=== PATIENT | male | born 1995 | race Caucasian/White ===

== ENCOUNTER 2018-01-25 04:57 | Emergency (ER) | payer MEDICAID ==
--- NOTE | 2018-01-25 05:03 | EDPHY ---
H & P Source: Patient, EMS Time Seen by Provider: 01/25/18 05:03 HPI/ROS: HPI CHIEF COMPLAINT: Intoxication, head laceration HISTORY OF PRESENT ILLNESS: This patient 22-year-old male who presents emergency room by EMS around 5 o'clock in the morning for intoxication. Patient admits to large amount of alcohol this evening, additionally smoked marijuana and most likely did acid. Patient presents somewhat agitated tachycardic. Additionally he has a laceration over the nasal bridge that is 4 cm in length. He is unsure how he got this. Denies any other areas of injury. Past Medical History: Denies significant medical history Past Surgical History: Benign brain tumor removal, shunt Social History: Admits to large amount of alcohol this evening, marijuana, acid Family History: Noncontributory ROS REVIEW OF SYSTEMS: A comprehensive 10 point review of systems is otherwise negative aside from elements mentioned in the history of present illness. Exam Constitutional intoxicated triage nursing summary reviewed, vital signs reviewed , awake/alert. Eyes normal conjunctivae and sclera, EOMI, pupils are 8 mm equal minimally reactive to light HENT head/neck atraumatic except for the 4 cm laceration noted over the nasal bridge, normal inspection, atraumatic, moist mucus membranes, no epistaxis, neck supple/ no meningismus, no raccoon eyes. Respiratory clear to auscultation bilaterally, normal breath sounds, no respiratory distress, no wheezing. Cardiovascular rate normal, regular rhythm, no murmur, no edema, distal pulses normal. Gastrointestinal soft, non-tender, no rebound, no guarding, normal bowel sounds, no distension, no pulsatile mass. Genitourinary no CVA tenderness. Musculoskeletal no midline vertebral tenderness, full range of motion, no calf swelling, no tenderness of extremities, no meningismus, good pulses, neurovascularly intact. Skin pink, warm, & dry, no rash, skin atraumatic. Neurologic awake, alert and oriented x 3, AAOx3, moves all 4 extremities equally, motor intact, sensory intact, CN II-XII intact, normal cerebellar, normal vision, normal speech. Psychiatric normal mood/affect. Heme/Lymph/Immune no lymphadenopathy. Differential Diagnosis: Includes but is not limited to in a particular order acute intoxication alcohol intoxication, drug intoxication, closed head injury, intracranial bleed, laceration Medical Decision Making: Plan for this patient CT head without contrast for trauma, will clean his wounds up in repair his facial laceration, check basic blood work, drug screen, cardiac surgeon Re-evaluation: Laceration Repair Procedure: Verbal Consent was obtained, Under sterile conditions, The patient had lidocaine with epinephrine used approximately 4ccs to local anesthetize the 3CM Forehead Laceration. The wound was copiously irrigated with sterile fluid, the wound was explored for foreign bodies there were none visualized, the wound was explored with a sterile glove to the base. There are no deep structures involved, including no arterial injury. TWO 6.O PROLENE interrupted Sutures were placed in this patient's laceration. He had good close approximation of the wound edges. He Tolerated this well. Patient understands have sutures removed in 7 days. Keep his wound clean, dry and protected. CT scan head without contrast called to me by Dr. Rosas no intracranial bleed or skull fracture. Soft tissue scalp swelling noted. [employer] shunt appears to be in appropriate position. Ventricles are decompressed. Cerebellar tumor. Otherwise no acute bleed or fracture of the skull. 0700: Signed over to Dr. Watson, patient pending sobriety, once sober, can be discharged from the Er. (Nick Lees) Constitutional: Initial Vital Signs Temperature (C) 36.2 C 01/25/18 04:58 Heart Rate 89 01/25/18 04:58 Respiratory Rate 18 01/25/18 04:58 Blood Pressure 104/95 H 01/25/18 04:58 O2 Sat (%) 99 01/25/18 04:58 O2 Delivery Mode Room Air Allergies/Adverse Reactions: No Known Allergies Allergy (Unverified 01/25/18 04:59) Home Medications: Medication Instructions Recorded NK [No Known Home Meds] 01/25/18 Medical Decision Making Other Provider: I assumed care of this patient at 7:[address] Nick Lees. Patient continued to be observed in the emergency department. I examined him on multiple occasions. He is quite confused and having hallucinations. I reviewed his CT scan which demonstrates a very small, slit-like ventricles with the potential for being over shunted. Patient himself tells me that he did have an issue with his shunt in the remote past but at that time he was confused and had vomiting and was sleepy. Patient does not feel that there is an issue with his shunt. He is followed at [facility]. With contacted [facility] on asked for the most recent CT scan to be provided to her Hospital. This was pushed through the PACS system and in comparison to the prior CT scans ventricle size appear similar. Patient was seen by the neurosurgical service with respect to the question of patient's continued altered mentation. Please see their note. Patient's friends were eventually contacted and reports that the patient did not use acid but did take multiple tablets of Benadryl. Patient's friends present to the emergency department. At this point the patient's mentation has continued to clear. He is oriented x3. He reports that he lives with his friends. They report that he is acting as his normal self. He no longer is having hallucinations. He was discharged from the emergency department with instructions to follow up with Neurosurgery. (Roseanne Watson) - Data Points Laboratory Results: Laboratory Results 01/25/18 05:15 01/25/18 05:15 01/25/18 01/25/18 01/25/18 06:30 05:15 05:15 WBC 7.88 10^3/uL 10^3/uL (3.80-9.50) RBC 6.29 10^6/uL 10^6/uL (4.40-6.38) Hgb 18.3 g/dL H g/dL (13.7-17.5) Hct 50.6 % % (40.0-51.0) MCV 80.4 fL L fL (81.5-99.8) MCH 29.1 pg pg (27.9-34.1) MCHC 36.2 g/dL g/dL (32.4-36.7) RDW 13.4 % % (11.5-15.2) Plt Count 310 10^3/uL 10^3/uL (150-400) MPV 9.9 fL fL (8.7-11.7) Neut % (Auto) 66.7 % % (39.3-74.2) Lymph % (Auto) 24.0 % % (15.0-45.0) Winn % (Auto) 7.4 % % (4.5-13.0) Eos % (Auto) 0.5 % L % (0.6-7.6) Baso % (Auto) 0.9 % % (0.3-1.7) Nucleat RBC Rel Count 0.0 % % (0.0-0.2) Absolute Neuts (auto) 5.26 10^3/uL 10^3/uL (1.70-6.50) Absolute Lymphs (auto) 1.89 10^3/uL 10^3/uL (1.00-3.00) Absolute Monos (auto) 0.58 10^3/uL 10^3/uL (0.30-0.80) Absolute Eos (auto) 0.04 10^3/uL 10^3/uL (0.03-0.40) Absolute Basos (auto) 0.07 10^3/uL 10^3/uL (0.02-0.10) Absolute Nucleated RBC 0.00 10^3/uL 10^3/uL (0-0.01) Immature Gran % 0.5 % % (0.0-1.1) Immature Gran # 0.04 10^3/uL 10^3/uL (0.00-0.10) Sodium 146 mEq/L H mEq/L (135-145) Potassium 3.9 mEq/L mEq/L (3.5-5.2) Chloride 103 mEq/L mEq/L (97-110) Carbon Dioxide 26 mEq/l mEq/l (22-31) Anion Gap 17 mEq/L H mEq/L (8-16) BUN 9 mg/dL mg/dL (7-23) Creatinine 1.1 mg/dL mg/dL (0.7-1.3) Estimated GFR > 60 Glucose 88 mg/dL mg/dL (70-100) Calcium 10.3 mg/dL mg/dL (8.5-10.4) Urine Opiates Screen NEGATIVE (NEGATIVE) Urine Barbiturates NEGATIVE (NEGATIVE) Ur Phencyclidine Scrn NEGATIVE (NEGATIVE) Ur Amphetamine Screen NEGATIVE (NEGATIVE) U Benzodiazepines Scrn NEGATIVE (NEGATIVE) Urine Cocaine Screen NEGATIVE (NEGATIVE) U Marijuana (THC) Screen NON-NEGATIVE H (NEGATIVE) Ethyl Alcohol 60 mg/dL H mg/dL (0-10) Medications Given: Discontinued Medications Sodium Chloride (Ns) 1,000 mls @ 0 mls/hr IV EDNOW ONE; Wide Open PRN Reason: Protocol Stop: 01/25/18 05:08 Last Admin: 01/25/18 05:12 Dose: 1,000 mls Sodium Chloride (Ns) 1,000 mls @ 0 mls/hr IV ONCE ONE PRN Reason: Wide Open Stop: 01/25/18 06:01 Last Admin: 01/25/18 06:03 Dose: Not Given Departure - Departure Disposition: Home, Routine, Self-Care Clinical Impression: Polysubstance abuse Alcoholic intoxication Qualifiers: Complication of substance-induced condition: uncomplicated Qualified Code(s): F10.920 - Alcohol use, unspecified with intoxication, uncomplicated Laceration of head Qualifiers: Encounter type: initial encounter Location of open wound of head: unspecified part of head Foreign body presence: without foreign body Qualified Code(s): S01.91XA - Laceration without foreign body of unspecified part of head, initial encounter Condition: Good Instructions: Care For Your Stitches (ED), Laceration (ED), Alcohol Intoxication (ED), Abuse of Alcohol (ED) Additional Instructions: 1. Your sutures need to be removed in 7 days. 2. Keep her wound clean, dry and intact and protected. Watch for signs of infection. Referrals: Patient,NotPresent [Unknown] - As per Instructions José Hopson MD [Medical Doctor] - As per Instructions
[2018-01-25] MEDS ORDERED: NS 1,000 ML IV ONE ×2 (05:07→06:00)
[2018-01-25 05:34] LABS: PLATELET COUNT 310 10^3/uL (150-400)
--- NOTE | 2018-01-25 12:20 | GCON ---
[f rep st] CONSULTATION DATE OF CONSULTATION: 01/25/2018 TIME OF CONSULTATION: 10:20 in the emergency room. HOSPITAL COURSE/HISTORY/MAJOR MEDICAL FINDINGS: Scarlet Thomas is a 22-year-old gentleman who wa s brought into the emergency room via EMS around 5 o'clock in the morning for intoxication. The ricardo ent at that time stated that he was drinking large amounts of alcohol earlier that evening and was sm oking some marijuana, and possibly had some acid as well. When he came in, he was somewhat agitated and was tachycardic. He was not recalling any of the events. Given his confusion and history of a V P shunt, Neurosurgery was consulted. The patient at time of consultation states that he had the SYSTEMS DEVELOPMENT CONSULTANT s aceves placed when he was 8 years old after he had undergone a brain tumor resection. That shunt and d id have some issues when he was 20 years old. At that time, the shunt was malfunctioning, he was vom iting, he was severely confused and combative. He has not had any problems with the shunt since he w as 20. He is currently off all medications and does not take any [id number] medications. He c urrently lives with his sister in [place]. He denies any weakness, any numbness, tingling, pain. H e denies any headaches, any nausea. PAST MEDICAL HISTORY: Significant for history of a brain tumor status post shunting. Denies other [facility] medical history. PAST SURGICAL HISTORY: Removal of brain mass with SYSTEMS DEVELOPMENT CONSULTANT shunting. He also had this revised when he was 20 per the patient. SOCIAL HISTORY: He does drink alcohol very frequently, he uses marijuana daily and smokes about 5 ci garettes per day. He lives with his sister locally in [place]. FAMILY HISTORY: Denies any significant past family history. ALLERGIES: No known drug allergies. MEDICATIONS: Denies any medication use. PHYSICAL EXAMINATION: VITAL SIGNS: His BP is 110/84, his heart rate is 65, respiratory rate is 16. He is 96% on room air. Temperature is 36.5. GENERAL: Patient is in no acute distress. He is alert and oriented x4. He answers all questions appropriately and his affect is appropriate for the given situation. HEENT: He does have a small abrasion at his nasal bridge. Cranial nerves 2 through 12 ar e grossly intact. EOMI. PERRLA. The patient's shunt valve was palpated. It does depress and refill appropriate. NEUROLOGIC: His strength is 5 out of n 5 and equal in his bilateral upper and bilateral lower extremities including his deltoids, triceps, biceps, wrist flexors, extensors, interossei, int rinsic french edge operator, iliopsoas, hamstrings, quadriceps, plantar flexion, dorsiflexion, EHL. ABDOMEN: His abd omen is nondistended, nontender and his surgical SYSTEMS DEVELOPMENT CONSULTANT shunt scars are well healed. DIAGNOSTIC REVIEW: Patient underwent a head CT which demonstrated no acute posttraumatic intracrania l abnormality, evidence of his shunt tubing was noted. There was an enlargement of the left cerebell ar hemisphere with a cystic lesion in the left posterior inferior cerebellar lobe. There was evidenc e of severe periodontal disease as well. DISCUSSION AND DECISION-MAKING: Mr. Scarlet Thomas is a 22-year-old gentleman who was brought in via EMS for intoxication status post fall who underwent a head CT, which demonstrated his prior shun t status. The patient was seen both by Dr. Montana and myself in the emergency room. Dr. Montana wa s able to review his prior films which she states were stable. The patient at time of our consultati on was alert, oriented and completely appropriate. He does not have any signs or symptoms such as na usea, vomiting, lethargy or headache that bring about concerns of a shunt malfunction. We did discus s this with the patient and he is in agreement. We will go ahead and sign off at this time as there is not any acute neurosurgical intervention. /[id number]/MODL
[2018-01-25 12:47] VITALS: BP 123/80
== END 2018-01-25 12:47 | disposition home or self-care (01) ==
PROC: 0HQ1XZZ Repair Face Skin, External Approach (ICD-10-PCS; principal; 2018-01-25)
DX: S01.81XA Laceration without foreign body of other part of head, initial encounter (principal); F10.920 Alcohol use, unspecified with intoxication, uncomplicated; F19.10 Other psychoactive substance abuse, uncomplicated; E86.9 Volume depletion, unspecified; X58.XXXA Exposure to other specified factors, initial encounter
CPT/HCPCS: 80305; G0480